=== PATIENT | female | born 1955 | race Two or more races ===

== ENCOUNTER 2023-08-04 11:35 | Inpatient (IN) | payer MEDICARE, MEDICAID ==
[~2023-08-04] VITALS: Ht 170.2 cm; Wt 109.0 kg
[2023-08-04] MEDS ORDERED: ALBUTEROL SULF 2.5 MG/0.5ML(0.5%) NEB SOLN NEB ONE (13:15)
[2023-08-04 13:35] LABS: Basophils # (auto) 0 10 ^3/uL (0-0.2); Basophils % (auto) 0.3 % (0.0-2.0); Eosinophils # (auto) 0.1 10 ^3/uL (0-0.8); Eosinophils % (auto) 1.6 % (0.0-7.0); Hematocrit 42.1 % (36.0-46.0); Hemoglobin 13.9 g/dL (12.2-16.2); Lymphocytes # (auto) 0.9 10 ^3/uL (0.4-5.4); Lymphocytes % (auto) 13.8 % (10.0-50.0); Mean Corpuscular Hemoglobin 30.5 pg (28.0-32.0); Mean Corpuscular Hgb Conc. 33.1 g/dL (32.0-36.0); Mean Corpuscular Volume 92.4 fL (80.0-100.0); Monocytes # (auto) 0.3 10 ^3/uL (0-1.3); Monocytes % (auto) 4.4 % (0.0-12.0); Neutrophils # (auto) 5.3 10 ^3/uL (1.6-8.6); Neutrophils % (auto) 79.9 % (37.0-80.0); Red Blood Cells 4.56 10^6/uL (4.0-5.20); Red Cell Distribution Width 14.8 % (11.8-14.3); White Blood Cell 6.6 10^3/uL (4.4-10.8)
[2023-08-04 14:03] LABS: Alanine Aminotransferase 47 U/L (7-40); Albumin 4.7 g/dL (3.2-4.8); Alkaline Phosphatase 92 U/L (46-116); Anion Gap 8 (5-15); Aspartate Aminotransferase 34 U/L (13-40); BUN/Creatinine Ratio 18.3 (10.0-20.0); Blood Urea Nitrogen 15 mg/dL (9-23); Calcium 9.3 mg/dL (8.7-10.4); Carbon Dioxide 27 mmol/L (20-30); Chloride 104 mmol/L (98-107); Glucose 123 mg/dL (74-106); Lipase 31 U/L (12-53); Sodium 139 mmol/L (136-145)
[2023-08-04 14:20] LABS: Bilirubin, Total 0.7 mg/dL (0.2-1.0)
[2023-08-04 14:57] LABS: Rapid Influenza A Negative (Negative); Rapid Influenza B Negative (Negative)
[2023-08-04 14:58] LABS: COVID19 ANTIGEN SOFIA FIA NEGATIVE (NEGATIVE)
[2023-08-04 15:21] LABS: Urine Bacteria NONE SEEN /hpf (None Seen); Urine Blood Negative /uL (Negative); Urine Clarity HAZY (Clear); Urine Color Yellow (Yellow); Urine Mucus FEW (None Seen); Urine Protein, UAD 1+ (Negative); Urine Specific Gravity 1.021 (1.001-1.035); Urine Urobilinogen Normal (Negative); Urine WBC 6 /hpf (0 - 5); Urine pH 7.5 (5.0-8.0)
[2023-08-04] MEDS ORDERED: DOCUSATE SOD 100 MG CAP PO PRN (18:15)
[2023-08-05] MEDS: SODIUM CHLORIDE 0.9% 1,000 ML IV SCH ×4 (02:06→19:15)
[2023-08-05] MEDS: METOPROLOL TARTRATE 25 MG TAB PO SCH ×3 (02:06→22:00)
[2023-08-05] MEDS: NITROFURANTOIN 100 mg CAP PO SCH ×3 (02:06→22:15)
[2023-08-05] MEDS: ONDANSETRON HCL 4 MG/2 ML VIAL IV PRN ×3 (02:25→12:34)
[2023-08-05] MEDS: MORPHINE SULFATE INJ 2 MG/ml SYRG IV PRN ×4 (02:26→19:16)
[2023-08-05] MEDS: DICYCLOMINE HCL 10 MG CAP PO SCH ×6 (02:54→22:15)
[2023-08-05 05:29] LABS: Basophils # (auto) 0 10 ^3/uL (0-0.2); Basophils % (auto) 0.5 % (0.0-2.0); Eosinophils # (auto) 0.1 10 ^3/uL (0-0.8); Eosinophils % (auto) 1.5 % (0.0-7.0); Hematocrit 40.7 % (36.0-46.0); Hemoglobin 13.5 g/dL (12.2-16.2); Lymphocytes # (auto) 1.1 10 ^3/uL (0.4-5.4); Lymphocytes % (auto) 18.2 % (10.0-50.0); Mean Corpuscular Hemoglobin 30.9 pg (28.0-32.0); Mean Corpuscular Hgb Conc. 33.2 g/dL (32.0-36.0); Mean Corpuscular Volume 93.3 fL (80.0-100.0); Monocytes # (auto) 0.5 10 ^3/uL (0-1.3); Monocytes % (auto) 7.6 % (0.0-12.0); Neutrophils # (auto) 4.4 10 ^3/uL (1.6-8.6); Neutrophils % (auto) 72.2 % (37.0-80.0); Red Blood Cells 4.36 10^6/uL (4.0-5.20); Red Cell Distribution Width 14.6 % (11.8-14.3); White Blood Cell 6.1 10^3/uL (4.4-10.8)
[2023-08-05 05:52] LABS: Alanine Aminotransferase 45 U/L (7-40); Albumin 4.6 g/dL (3.2-4.8); Alkaline Phosphatase 82 U/L (46-116); Anion Gap 10 (5-15); Aspartate Aminotransferase 23 U/L (13-40); BUN/Creatinine Ratio 10.8 (10.0-20.0); Blood Urea Nitrogen 9 mg/dL (9-23); Calcium 9.6 mg/dL (8.5-10.1); Carbon Dioxide 25 mmol/L (20-30); Chloride 102 mmol/L (98-107); Glucose 121 mg/dL (74-106); Potassium 4.1 mmol/L (3.5-5.1); Sodium 137 mmol/L (136-145)
[2023-08-05 05:53] LABS: Bilirubin, Total 0.9 mg/dL (0.2-1.0); Total Protein 7.3 g/dL (5.7-8.2)
[2023-08-05] MEDS ORDERED: levoFLOXacin 500MG 100 ML IV ONE (13:15)
[2023-08-05 17:00] VITALS: BP 163/77; PULSE 67; PULSE 69; RESP 18; TEMP 98.3; O2SAT 95
[2023-08-05 17:15] VITALS: BP 154/70; PULSE 67; RESP 18; TEMP 98.3; O2SAT 95
[2023-08-05] MEDS ORDERED: METO25TA5 PO (18:50)
[2023-08-05] MEDS ORDERED: APIX5TAB PO (18:50)
[2023-08-05] MEDS ORDERED: CETI5SOL8 PO (18:50)
[2023-08-05] MEDS ORDERED: ROSU20TA14 PO (18:50)
[2023-08-05] MEDS ORDERED: CHOL20007 PO (18:50)
[2023-08-05 20:00] VITALS: PULSE 58; PULSE 60; RESP 18; O2SAT 96
[2023-08-05 22:00] VITALS: BP 106/56; PULSE 60; RESP 18; TEMP 98.4; O2SAT 96
[2023-08-06] VITALS (7 sets, daily range): BP systolic 112–136; BP diastolic 53–76; PULSE 56–66; RESP 16–19; TEMP 97.9–98.6; O2SAT 94–97
[2023-08-06] MEDS: MORPHINE SULFATE INJ 2 MG/ml SYRG IV PRN ×5 (02:02→22:07)
[2023-08-06] MEDS: SODIUM CHLORIDE 0.9% 1,000 ML IV SCH ×3 (03:35→21:46)
[2023-08-06 05:10] LABS: COVID19 ANTIGEN SOFIA FIA NEGATIVE (NEGATIVE)
[2023-08-06] MEDS: DICYCLOMINE HCL 10 MG CAP PO SCH ×4 (06:00→21:46)
[2023-08-06] MEDS: PANTOPRAZOLE 40 MG TAB PO SCH (10:04)
[2023-08-06] MEDS: NITROFURANTOIN 100 mg CAP PO SCH ×2 (10:06→21:45)
[2023-08-06] MEDS: METOPROLOL TARTRATE 25 MG TAB PO SCH ×2 (10:06→21:45)
[2023-08-06] MEDS: levoFLOXacin 500MG 100 ML IV SCH (10:06)
[2023-08-07] MEDS: APIXABAN 2.5 MG TAB PO SCH ×2 (00:33→09:26)
[2023-08-07 05:00] VITALS: BP 124/74; PULSE 63; RESP 16; TEMP 98.3; O2SAT 93
[2023-08-07] MEDS: MORPHINE SULFATE INJ 2 MG/ml SYRG IV PRN ×2 (06:30→12:13)
[2023-08-07] MEDS: DICYCLOMINE HCL 10 MG CAP PO SCH ×2 (06:31→12:13)
[2023-08-07 08:00] VITALS: BP 106/51; PULSE 65; PULSE 78; RESP 18; TEMP 98; O2SAT 95
[2023-08-07] MEDS: NITROFURANTOIN 100 mg CAP PO SCH (09:26)
[2023-08-07] MEDS: PANTOPRAZOLE 40 MG TAB PO SCH (09:26)
[2023-08-07] MEDS: levoFLOXacin 500MG 100 ML IV SCH (09:27)
[2023-08-07] MEDS: METOPROLOL TARTRATE 25 MG TAB PO SCH (09:27)
[2023-08-07 09:30] VITALS: BP 106/51; PULSE 78; RESP 18; TEMP 98; O2SAT 95
[2023-08-07] MEDS ORDERED: LEVO500T91 PO (10:02)
[2023-08-07] MEDS ORDERED: PANT40T PO (10:06)
[2023-08-07 12:16] VITALS: BP 106/51; PULSE 78; RESP 20; O2SAT 96
[2023-08-07] MEDS: ONDANSETRON HCL 4 MG/2 ML VIAL IV PRN (12:21)
[2023-08-07 13:00] VITALS: BP 111/56; PULSE 56; RESP 19; TEMP 98.4; O2SAT 94
== END 2023-08-07 14:22 | disposition home or self-care (01) | DRG 872 ==
LOC: ER 11:35 → OVERFLOW 18:19 → TELE-EAST 08-05 16:55
PROVIDERS: ADMIT Nurse Practitioner Family; ATTEND Family Medicine
DX: A41.9 Sepsis, unspecified organism (principal); N39.0 Urinary tract infection, site not specified; E86.0 Dehydration; I48.91 Unspecified atrial fibrillation; K42.9 Umbilical hernia without obstruction or gangrene; K52.9 Noninfective gastroenteritis and colitis, unspecified; K76.0 Fatty (change of) liver, not elsewhere classified; K57.90 Diverticulosis of intestine, part unspecified, without perforation or abscess without bleeding; E66.9 Obesity, unspecified; R16.0 Hepatomegaly, not elsewhere classified; M46.40 Discitis, unspecified, site unspecified; K40.20 Bilateral inguinal hernia, without obstruction or gangrene, not specified as recurrent; Z86.73 Personal history of transient ischemic attack (TIA), and cerebral infarction without residual deficits; Z20.822 Contact with and (suspected) exposure to COVID-19; Z87.891 Personal history of nicotine dependence; Z88.0 Allergy status to penicillin; Z88.1 Allergy status to other antibiotic agents; Z88.8 Allergy status to other drugs, medicaments and biological substances; Z68.36 Body mass index [BMI] 36.0-36.9, adult; Z86.19 Personal history of other infectious and parasitic diseases
CPT/HCPCS: 36415; 71045; 74176; 80053; 81001; 83605; 83690; 84484; 85025; 87040; 87086; 87426; 87804; 93005; 96361; 96374; 96375; G0378; J1956; J2405